=== PATIENT | female | born 1955 | race Two or more races ===

== ENCOUNTER 2017-06-26 17:01 | Emergency (ER) | payer BC ==
[~2017-06-26] VITALS: Ht 152.4 cm; Wt 61.2 kg
--- NOTE | 2017-06-26 17:41 | NUR ---
PT SEEN AND EVALUATED BY DR. LEUNG. DAUGHTER AT BEDSIDE.
[2017-06-26] MEDS ORDERED: AZITHROMYCIN 250 MG TABLET PO ONE (17:45)
[2017-06-26] MEDS ORDERED: predniSONE 20 MG TABLET PO ONE (17:45)
[2017-06-26 17:58] VITALS: BP 122/62
--- NOTE | 2017-06-26 17:58 | NUR ---
PT D/C'D HOME . ACI/RX X3 GIVEN. PT AMBULATED W/O DIFF/TOOK ALL BELONGINGS.
[2017-06-26] MEDS ORDERED: predniSONE 20 MG TABLET ONE (18:02)
[2017-06-26] MEDS ORDERED: AZITHROMYCIN 250 MG TABLET ONE (18:02)
== END 2017-06-26 17:59 | disposition home or self-care (01) ==
LOC: ER 17:02
DX: J02.9 Acute pharyngitis, unspecified (principal); M19.90 Unspecified osteoarthritis, unspecified site; E11.9 Type 2 diabetes mellitus without complications
CPT/HCPCS: 99283; A4663; J7512; Q0144

== ENCOUNTER 2023-04-20 21:54 | Emergency (ER) | payer MEDICARE, OTHER ==
[~2023-04-20] VITALS: Ht 162.6 cm; Wt 61.2 kg
[2023-04-20 22:23] LABS: *BILIRUBIN,URIN NEGATIVE (NEGATIVE); *BLOOD, URINE 3+ (NEGATIVE); *COLOR,URINE YELLOW (YELLOW); *KETONES,URINE NEGATIVE (NEGATIVE); *PROTEIN,URINE 1+ (NEGATIVE); *UROBILINOGEN,URINE 0.2 E.U./dl (NORMAL); LEUKOCYTE ESTERASE ,URINE 1+ (NEGATIVE); NITRITE, URINE NEGATIVE (NEGATIVE); UGLUCOSE NEGATIVE (NEGATIVE)
[2023-04-20 22:34] LABS: *CLARITY,URINE CLOUDY (CLEAR)
[2023-04-20] MEDS ORDERED: CEFTRIAXONE 1 G in IV DEXTROSE 5% 50 ML IV ONE (23:30)
[2023-04-20 23:47] LABS: BASOPHILS % (AUTO) 0.4 % (0.0-2.0); EOSINOPHILS # (AUTO) 0.1 K/uL (0.0-0.7); EOSINOPHILS % (AUTO) 0.6 % (0.0-7.0); HEMATOCRIT 33.5 % (31.2-41.9); HEMOGLOBIN 11.2 g/dL (10.9-14.3); LYMPHOCYTES # (AUTO) 1.1 K/uL (0.8-4.8); LYMPHOCYTES % (AUTO) 10.7 % (20.5-51.5); MEAN CORPUSCULAR HEMOGLOBIN 29.4 uug (24.7-32.8); MEAN CORPUSCULAR HGB CONC 33 g/dL (32.3-35.6); MEAN CORPUSCULAR VOLUME 88.2 fL (75.5-95.3); MONOCYTES # (AUTO) 0.6 K/uL (0.1-1.30); MONOCYTES % (AUTO) 5.4 % (0.0-11.0); NEUTROPHILS # (AUTO) 8.7 K/uL (1.8-8.9); NEUTROPHILS % (AUTO) 82.9 % (38.5-71.5); PLATELET COUNT (AUTO) 127 K/uL (179-408); RED BLOOD CELL COUNT(AUTO) 3.79 MIL/uL (3.63-4.92); RED CELL DISTRIBUTION WIDTH 12.9 % (12.3-17.7); WHITE BLOOD COUNT (AUTO) 10.5 K/uL (3.8-11.8)
[2023-04-20] MEDS ORDERED: CEFTRIAXONE /D5W 50ML IVPB **ER PYXIS IV ONE (23:47)
[2023-04-20 23:48] LABS: DIFFERENTIAL COMMENT 1
[2023-04-20 23:59] LABS: RBC,URINE TNTC /HPF (0-3)
[2023-04-21] LABS: BACTERIA,URINE FEW /HPF (NONE SEEN); SQUAMOUS EPITHELIAL CELL,UR FEW /HPF (NONE SEEN)
[2023-04-21] MEDS ORDERED: ACETAMINOPHEN ES 500 MG TABLET PO ONE
[2023-04-21] MEDS ORDERED: ACETAMINOPHEN ES 500 MG TABLET ONE (00:01)
[2023-04-21 00:48] LABS: ALBUMIN 3.8 g/dL (3.4-5.0); BILIRUBIN,DIRECT 0.1 mg/dL (0.0-0.2); BILIRUBIN,TOTAL 0.4 mg/dL (0.2-1.0); CALCIUM 8.7 mg/dL (8.5-10.1); CREATININE 1.3 mg/dL (0.6-1.3); POTASSIUM 4.5 mmol/L (3.5-5.1); TOTAL PROTEIN, SERUM 7.5 g/dL (6.4-8.2)
[2023-04-21] MEDS ORDERED: NITR100C11 PO (05:42)
[2023-04-21 05:56] VITALS: BP 125/86; TEMP 98; O2SAT 99
== END 2023-04-21 05:56 | disposition home or self-care (01) ==
LOC: ER 21:56
DX: N39.0 Urinary tract infection, site not specified (principal); E11.9 Type 2 diabetes mellitus without complications
CPT/HCPCS: 99285; 96365; 80076; 80048; 81001; 85025; 87040 ×2; 36415; 83605; 74176; J0696; A4663; A9150